=== PATIENT | female | born 1960 | race Caucasian/White ===

== ENCOUNTER 2017-04-01 16:59 | Emergency (ER) | payer OTHER ==
[~2017-04-01] VITALS: Ht 149.9 cm; Wt 68.9 kg
[2017-04-01 17:14] VITALS: BP 125/79
== END 2017-04-01 18:17 | disposition home or self-care (01) ==
LOC: ED 16:59
DX: S93.401A Sprain of unspecified ligament of right ankle, initial encounter (principal); I10 Essential (primary) hypertension; E11.9 Type 2 diabetes mellitus without complications; X58.XXXA Exposure to other specified factors, initial encounter; Y93.89 Activity, other specified; Y92.89 Other specified places as the place of occurrence of the external cause; Y99.8 Other external cause status

== ENCOUNTER 2018-12-15 20:27 | Emergency (ER) | payer OTHER ==
[~2018-12-15] VITALS: Ht 149.9 cm; Wt 68.9 kg
[2018-12-15 20:53] VITALS: Ht 149.9 cm; Wt 68.9 kg
[2018-12-15 21:55] LABS: BASOPHIL % 1.6 % (0-2); PLATELET COUNT 276 x10^3mcL (130-400); RED CELL DISTRIBUTION WIDTH 14.1 % (11.5-14.5)
[2018-12-15 22:04] LABS: CALCIUM 8.9 mg/dL (8.5-10.1); CARBON DIOXIDE 26.9 mmol/L (21-32); CHLORIDE SERUM 102 mmol/L (98-107); GFR1 > 60 mL/min; GLUCOSE SERUM 236 mg/dL (74-106); POTASSIUM SERUM 3.6 mmol/L (3.5-5.1); SODIUM SERUM 132 mmol/L (136-145)
[2018-12-15 22:09] LABS: ALBUMIN 3.4 g/dL (3.4-5.0); ALKALINE PHOSPHATASE 120 U/L (46-116); ALT/SGPT 23 U/L (14-59); AST/SGOT 3 U/L (15-37); BILIRUBIN TOTAL 0.15 mg/dL (0.20-1.00); TOTAL PROTEIN, SERUM 7.6 g/dL (6.4-8.2)
[2018-12-16 00:48] VITALS: BP 133/75
== END 2018-12-16 00:48 | disposition home or self-care (01) ==
LOC: ED 20:27
PROVIDERS: Emergency Medicine
DX: K80.50 Calculus of bile duct without cholangitis or cholecystitis without obstruction (principal); I10 Essential (primary) hypertension; E11.9 Type 2 diabetes mellitus without complications; E78.00 Pure hypercholesterolemia, unspecified
CPT/HCPCS: 36415; J1885; Q0092